=== PATIENT | male | born 1980 | race Caucasian/White ===

== ENCOUNTER → 2023-01-27 10:44 | Outpatient (CLI) | payer BC, SELFPAY ==
--- NOTE | ~2023-01-27 | XR_ITS ---
EXAMINATION: XR ankle LT min 3V, XR foot LT min 3V DATE: 01/27/2023 10:59 INDICATION: Lateral left ankle pain TECHNIQUE: 1. Anteroposterior, mortise, additional oblique and lateral view of the left ankle were obtained. 2. Dorsoplantar, two oblique and lateral views of the left foot were obtained. COMPARISON: None. FINDINGS: Alignment of the foot and ankle is normal. No fracture or osteochondral lesion. Minimal to mild polya rticular osteoarthritis in the mid and forefoot most prominent at the first metatarsophalangeal joint and the second tarsal metatarsal joint. No erosions to suggest an inflammatory arthritis. No ankle j oint effusion. The soft tissues are unremarkable. IMPRESSION: 1. Minimal to mild polyarticular osteoarthritis in the mid and forefoot. Reviewed, dictated and finalized at location A. [employer] IMPRESSION: 1. Minimal to mild polyarticular osteoarthritis in the mid and forefoot.
== END ==
PROVIDERS: PCP Internal Medicine; Visit Provider Chiropractor
DX: M19.072 Primary osteoarthritis, left ankle and foot (principal)
CPT/HCPCS: 73610; 73630